=== PATIENT | male | born 2000 | race Caucasian/White ===

== ENCOUNTER 2024-04-29 06:38 | Emergency (ER) | payer OTHER ==
[~2024-04-29] VITALS: Ht 195.6 cm; Wt 109.1 kg
[2024-04-29] MEDS: ONDANSETRON 4MG 2ML VIAL IV ONE (07:32)
[2024-04-29 09:00] VITALS: BP 104/86; TEMP 97.7; O2SAT 98
== END 2024-04-29 09:35 | disposition home or self-care (01) ==
LOC: M ED 06:38
DX: S06.0X9A Concussion with loss of consciousness of unspecified duration, initial encounter (principal); Y92.019 Unspecified place in single-family (private) house as the place of occurrence of the external cause; Y93.9 Activity, unspecified; Y99.9 Unspecified external cause status; F10.10 Alcohol abuse, uncomplicated; W06.XXXA Fall from bed, initial encounter
CPT/HCPCS: 70450; 72125; 82077; 96374; 99284; J2405